=== PATIENT | male | born 1985 | race Caucasian/White ===

== ENCOUNTER 2022-11-02 15:13 | Outpatient (CLI) | payer BC ==
[~2022-11-02 15:13] MED LIST: Iopamidol 300 61% 100 ML VIAL FS ONE
== END 2022-11-02 15:14 | disposition home or self-care (01) ==
LOC: CSHCT 15:13
PROVIDERS: ATTEND Internal Medicine Gastroenterology
DX: K86.3 Pseudocyst of pancreas (principal); Z96.89 Presence of other specified functional implants
CPT/HCPCS: 74177; Q9967